=== PATIENT | male | born 1965 | race Caucasian/White ===

== ENCOUNTER 2019-01-27 20:43 | Emergency (ER) | payer BC ==
[2019-01-27] MEDS ORDERED: Lidocaine 1% 30 ML SDV INJECT ONE (21:52)
[2019-01-27] MEDS ORDERED: Bacitracin Oint 1 GM U/D Packet TOP ONE (21:52)
[2019-01-27] MEDS ORDERED: Diphtheria,Pertussis(Acell),Tetanus Vaccine 0.5 ML SDV IM ONE (22:12)
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
== END 2019-01-27 22:31 | disposition home or self-care (01) ==
LOC: DL.ED 20:43
DX: S01.311A Laceration without foreign body of right ear, initial encounter (principal); Z23 Encounter for immunization; W22.8XXA Striking against or struck by other objects, initial encounter
CPT/HCPCS: 12011; 70450; 90471; 90715; 99283; J2001